=== PATIENT | male | born 1965 | race African-American/Black ===

== ENCOUNTER 2018-03-05 18:06 | Emergency (ER) | payer BC ==
[2018-03-05 18:16] VITALS: BP 147/84
--- NOTE | 2018-03-05 18:28 | ER Document Report ---
HPI - HPI Patient complains to provider of: Worsening cough Onset: Other - Saturday Onset/Duration: Gradual Pain Level: 2 Context: 52-year-old non-smoker complaining of cough and congestion with yellow mucus since Saturday. He was treated with doxycycline and an albuterol metered-dose inhaler. He was told to come get a chest x-ray if he was still feeling sick. No chest pain or shortness of breath. No nausea vomiting or diarrhea. Associated Symptoms: None Exacerbated by: Denies Relieved by: Denies Similar symptoms previously: No Recently seen / treated by doctor: Yes - ROS ROS below otherwise negative: Yes Systems Reviewed and Negative: Yes All other systems reviewed and negative Past Medical History - General Information source: Patient - Social History Smoking Status: Never Smoker Frequency of alcohol use: None Drug Abuse: None Lives with: Family Family History: Reviewed & Not Pertinent - Past Medical History Cardiac Medical History: Reports: Hx Hypertension Surgical Hx: Negative Vertical Provider Document - CONSTITUTIONAL Agree With Documented VS: Yes Exam Limitations: No Limitations - INFECTION CONTROL TRAVEL OUTSIDE OF THE [place] IN LAST 30 DAYS: No - HEENT HEENT: Normocephalic, Pharyngeal Erythema - Minimal. negative: Conjuctival Injection, Tympanic Membrane Red - NECK Neck: Supple. negative: Lymphadenopathy-Left, Lymphadenopathy-Right - RESPIRATORY Respiratory: No Respiratory Distress, Wheezing - Scattered coarse wheeze minimal - CARDIOVASCULAR Cardiovascular: Regular Rate, Regular Rhythm - GI/ABDOMEN Gastrointestinal: Abdomen Soft, Abdomen Non-Tender - NEURO Level of Consciousness: Awake, Alert - DERM Integumentary: Warm, Dry, No Rash Course - Re-evaluation Re-evalutation: 03/05/18 19:20 Chest x-ray is negative I listen to the patient and there is still a little bit of wheezing I thought that he had already gotten his prednisone breathing treatment and he has not gotten it 03/05/18 19:51 Patient states that the breathing treatment did help in his lungs are clear at this time. - Vital Signs Vital signs: Temp Pulse Resp BP Pulse Ox 98.8 F 88 20 147/84 H 96 03/05/18 18:14 03/05/18 18:14 03/05/18 18:14 03/05/18 18:14 03/05/18 18:14 Discharge - Discharge Clinical Impression: Bronchitis Condition: Good Disposition: HOME, SELF-CARE Instructions: Bronchitis ([facility]), Bronchitis With Bronchospasm (Wheezing) ([facility]), Inhaled Bronchodilators ([facility]), Steroid Medication Additional Instructions: plenty of fluids prednisone for 4 more days Use the inhaler 2 puffs every 4 hours for cough Return to the emergency room if worse Copy of negative chest x-ray given to you Prescriptions: Prednisone [Deltasone 20 mg Tablet] 40 mg PO DAILY #8 tablet Forms: Return to Work
[2018-03-05] MEDS ORDERED: PREDNISONE 20 MG TABLET PO ONE (18:31)
[2018-03-05] MEDS ORDERED: IPRATROPIUM/ALBUTEROL 0.5-2.5 MG/3 ML AMPUL NEB ONE (18:31)
--- NOTE | 2018-03-05 18:50 | RADIOLOGY REPORT (SQ) ---
EXAM DESCRIPTION: CHEST 2 VIEWS COMPLETED DATE/TIME: 03/05/2018 6:38 pm REASON FOR STUDY: cough, wheeze COMPARISON: 2006 EXAM PARAMETERS: NUMBER OF VIEWS: two views TECHNIQUE: Digital Frontal and Lateral radiographic views of the chest acquired. RADIATION DOSE: NA LIMITATIONS: none FINDINGS: LUNGS AND PLEURA: No opacities, masses or pneumothorax. No pleural effusion. MEDIASTINUM AND HILAR STRUCTURES: No masses or contour abnormalities. HEART AND VASCULAR STRUCTURES: Heart normal size. No evidence for failure. BONES: No acute findings. HARDWARE: None in the chest. OTHER: No other significant finding. IMPRESSION: NO ACUTE RADIOGRAPHIC FINDING IN THE CHEST. TECHNICAL DOCUMENTATION: JOB ID: [id number] [employer]- All Rights Reserved Reading location - IP/workstation name: [email or web address]
== END 2018-03-05 19:49 | disposition home or self-care (01) ==
LOC: ER 18:06
DX: J40 Bronchitis, not specified as acute or chronic (principal); R05 Cough; R09.81 Nasal congestion; I10 Essential (primary) hypertension
CPT/HCPCS: 99284; 71046; J7512; J7620